=== PATIENT | female | born 1960 | race Caucasian/White ===

== ENCOUNTER 2019-02-16 08:24 | Outpatient (CLI) | payer MEDICARE, SELFPAY ==
[2019-02-16 09:14] LABS: Hemoglobin A1C 8.4 % (4.5-6.2)
[2019-02-16 09:16] LABS: CREATININE 0.57 mg/dL (0.55-1.02); Potassium 3.8 mmol/L (3.5-5.1)
== END 2019-02-16 08:44 ==
PROVIDERS: PCP Family Medicine; Visit Provider Family Medicine
DX: E11.9 Type 2 diabetes mellitus without complications (principal)
CPT/HCPCS: 36415; 82565; 83036; 84132

== ENCOUNTER → 2019-05-25 10:59 | Outpatient (BNVA) | payer MEDICARE, SELFPAY | PROVIDERS: PCP Family Medicine; Referring Provider Family Medicine; Visit Provider Surgery | DX: C44.699 Other specified malignant neoplasm of skin of left upper limb, including shoulder (principal); Z85.828 Personal history of other malignant neoplasm of skin; R59.0 Localized enlarged lymph nodes | CPT/HCPCS: 11104; 99203; 99214 ==

== ENCOUNTER 2019-05-25 12:36 | Outpatient (REF) | payer MEDICARE, SELFPAY ==
--- NOTE | 2019-05-25 11:33 | SKI_PTH ---
PATIENT: NAIN DEWITT LOC: [facility] U#:[id number] AGE/SX: 58/F ROOM: RE05/25/[address]: Maribeth Ibarra MD : [id number] BED: DIS: 05/25/2019 SPEC #: [id number] RECD: 05/25/19 12:47 STATUS: YA REQ #: [id number] [place]: 05/25/19 11:[address]: Maribeth Ibarra DEPT: Surgical Specimen RECD BY: Teresita Herbert ENTERED: 05/25/19 12:48 SP TYPE: ANDERSON JANG DR: Viraj Xavier MD Tissues: 1 - SKIN BIOPSY(SHAVE/PUNCH) Procedures: IMMUNOPEROXIDASE STAIN SKIN LEVEL 4 Comments: [id number]
== END 2019-05-25 12:56 ==
LOC: LBN 12:36
PROVIDERS: PCP Family Medicine; Visit Provider Surgery
DX: C44.699 Other specified malignant neoplasm of skin of left upper limb, including shoulder (principal); Z85.828 Personal history of other malignant neoplasm of skin
CPT/HCPCS: 88305; 88361

== ENCOUNTER 2019-05-31 01:24 | Outpatient (CLI) | payer MEDICARE, SELFPAY ==
[2019-05-31 13:41] LABS: CREATININE 0.43 mg/dL (0.55-1.02)
--- NOTE | 2019-05-31 14:00 | DI.CT_ITS ---
EXAM: CT NECK CHEST W CLINICAL HISTORY: Dysplastic skin lesion, L98.8, supraclavicular lymphadenopathy in smoker, R59.0. TECHNIQUE: CT examination of the neck and chest was performed with a bolus infusion of 100 cc of Omn ipaque 350. COMPARISON: No comparison exams are available. FINDINGS: Note is made of cervical fusion hardware and posterior fixation rods. Tracheolaryngeal structures ap pear intact. No cervical mass or adenopathy. Visualized portions of the brain are unremarkable. Mu coperiosteal thickening noted in left ethmoid and sphenoid sinus consistent with chronic sinusitis. No supraclavicular or axillary adenopathy. No mediastinal or hilar adenopathy. No evidence of pulmo nary embolic disease. No thoracic aortic aneurysm or dissection. There is predominantly subpleural emphysema. There is traction bronchiectasis at multiple sites. No dominant intrapulmonary mass iden tified. Patchy ground-glass opacities noted at multiple sites, predominantly peripheral, nonspecific . No pleural effusion or pleural-based mass. There is a markedly nodular hepatic contour suggesting cirrhosis. There is mild hepatosplenomegaly. Visualized portions of adrenals and kidneys are unremarkable. There is cholelithiasis without signi ficant biliary dilatation. Pancreas is grossly unremarkable. There is a question of gastric wall th ickening in the fundus, correlation requested regarding the possibility of gastric inflammation or ma lignancy, endoscopic correlation may be considered. IMPRESSION: 1. No dominance cervical or thoracic mass or adenopathy. 2. Predominantly subpleural pulmonary emphysematous changes and nonspecific predominantly peripheral infiltrates are present, a nonspecific finding but eosinophilic pneumonia may be considered. 3. Cholelithiasis. 4. Findings strongly suggestive of hepatic cirrhosis. 5. Question gastric wall thickening in the fundus, inflammatory versus neoplastic, correlation with e ndoscopy should be considered.
[2019-05-31] MEDS: Omnipaque 350 MG/ML 100 ML BTL IJ (14:07)
[2019-05-31 18:26] LABS: Hemoglobin A1C 7.4 % (4.5-6.2)
== END 2019-05-31 01:44 ==
PROVIDERS: PCP Family Medicine; Visit Provider Surgery
DX: L98.8 Other specified disorders of the skin and subcutaneous tissue (principal); E11.65 Type 2 diabetes mellitus with hyperglycemia; R59.0 Localized enlarged lymph nodes; F17.220 Nicotine dependence, chewing tobacco, uncomplicated; J43.9 Emphysema, unspecified; K80.20 Calculus of gallbladder without cholecystitis without obstruction; K74.60 Unspecified cirrhosis of liver; K31.89 Other diseases of stomach and duodenum
CPT/HCPCS: 70491; 71260; 82565; 83036; J3490

== ENCOUNTER 2020-03-17 09:49 | Outpatient (CLI) | payer OTHER, SELFPAY | END 2020-03-17 10:09 | PROVIDERS: PCP Family Medicine; Visit Provider Family Medicine | DX: R69 Illness, unspecified (principal) ==